=== PATIENT | male | born 1960 | race Caucasian/White ===

== ENCOUNTER 2019-10-02 11:31 | Emergency (ER) | payer OTHER ==
[~2019-10-02] VITALS: Ht 167.6 cm; Wt 78.0 kg
[2019-10-02] MEDS ORDERED: LIPITOR40 MG PO (11:41)
[2019-10-02] MEDS ORDERED: NORCO 5-325 TA1 EAC1 PO (13:08)
[2019-10-02 13:17] VITALS: BP 94/70
== END 2019-10-02 13:12 | disposition home or self-care (01) ==
LOC: ER 11:31
DX: S22.42XA Multiple fractures of ribs, left side, initial encounter for closed fracture (principal); R10.12 Left upper quadrant pain; R42 Dizziness and giddiness; E78.5 Hyperlipidemia, unspecified; Z79.899 Other long term (current) drug therapy; W11.XXXA Fall on and from ladder, initial encounter; Y93.89 Activity, other specified; Y92.89 Other specified places as the place of occurrence of the external cause; Y99.8 Other external cause status